=== PATIENT | female | born 1990 ===

== ENCOUNTER 2021-11-10 09:20 | Outpatient (CLI) | payer OTHER | END 2021-11-10 10:45 | disposition home or self-care (01) | LOC: PRENATAL 09:20 | PROVIDERS: ATTEND Obstetrics & Gynecology Maternal & Fetal Medicine | DX: O35.0XX1 Maternal care for (suspected) central nervous system malformation in fetus, fetus 1 (principal); O35.3XX1 Maternal care for (suspected) damage to fetus from viral disease in mother, fetus 1; O98.512 Other viral diseases complicating pregnancy, second trimester; Z36.89 Encounter for other specified antenatal screening; Z3A.22 22 weeks gestation of pregnancy ==

== ENCOUNTER 2021-11-29 09:00 | Outpatient (CLI) | payer OTHER | END 2021-11-29 10:15 | disposition home or self-care (01) | LOC: PRENATAL 09:00 | PROVIDERS: ATTEND Obstetrics & Gynecology Maternal & Fetal Medicine | DX: Z31.430 Encounter of female for testing for genetic disease carrier status for procreative management (principal) ==

== ENCOUNTER 2022-01-20 08:26 | Outpatient (CLI) | payer OTHER | END 2022-01-20 10:15 | disposition home or self-care (01) | LOC: PRENATAL 08:26 | PROVIDERS: ATTEND Obstetrics & Gynecology Maternal & Fetal Medicine | DX: O26.849 Uterine size-date discrepancy, unspecified trimester (principal); O35.0XX0 Maternal care for (suspected) central nervous system malformation in fetus, not applicable or unspecified; Z3A.32 32 weeks gestation of pregnancy; Z91.030 Bee allergy status ==

== ENCOUNTER 2022-02-25 08:35 | Outpatient (CLI) | payer OTHER | END 2022-02-25 09:30 | disposition home or self-care (01) | LOC: PRENATAL 08:35 | PROVIDERS: ATTEND Obstetrics & Gynecology Maternal & Fetal Medicine | DX: O26.849 Uterine size-date discrepancy, unspecified trimester (principal); O35.9XX0 Maternal care for (suspected) fetal abnormality and damage, unspecified, not applicable or unspecified; Z91.030 Bee allergy status; Z3A.37 37 weeks gestation of pregnancy ==

== ENCOUNTER 2022-03-17 09:17 | Inpatient (IN) | payer OTHER ==
[~2022-03-17] VITALS: Ht 162.6 cm; Wt 72.1 kg
[2022-03-17] MEDS ORDERED: PRENATA CHEWAB1 EACH PO (10:28)
[2022-03-18] MEDS ORDERED: PRENATAL + DHA1 EAC1 (10:24)
[2022-03-20] MEDS ORDERED: Tylenol #3 PO (08:04)
[2022-03-20] MEDS ORDERED: NAPR500T14 PO (08:04)
== END 2022-03-20 15:05 | disposition home or self-care (01) | DRG 788 ==
LOC: LDR 09:17 → OB/GYN 03-18 02:16
PROVIDERS: ADMIT Student in an Organized Health Care Education/Training Program; ATTEND Student in an Organized Health Care Education/Training Program
PROC: 4A1HXCZ Monitoring of Products of Conception, Cardiac Rate, External Approach (ICD-10-PCS; 2022-03-17)
PROC: 10D00Z1 Extraction of Products of Conception, Low, Open Approach (ICD-10-PCS; principal; 2022-03-17 21:00)
DX: O82 Encounter for cesarean delivery without indication (principal); O62.1 Secondary uterine inertia; Z3A.40 40 weeks gestation of pregnancy; Z37.0 Single live birth; Z20.822 Contact with and (suspected) exposure to COVID-19